=== PATIENT | female | born 1985 | race Caucasian/White ===

== ENCOUNTER 2016-12-23 00:38 | Emergency (ER) | payer MEDICAID ==
[2016-12-23] MEDS ORDERED: IPRATROPIUM/ALBUTEROL 0.5-2.5 MG/3 ML AMPUL NEB ONE (02:10)
--- NOTE | 2016-12-23 02:11 | ER Document Report ---
ED Medical Screen (RME) - General Chief Complaint: Chest Congestion Stated Complaint: TROUBLE BREATHING Time Seen by Provider: 12/23/16 02:09 Notes: 31-year-old female, chief complaint of 3 days of cough, congestion, chills, and some wheezing. She does not smoke, denies history of asthma, only medical history is Crohn's disease, she takes no medications and is in remission. She does report some sick contacts. TRAVEL OUTSIDE OF THE [place] IN LAST 30 DAYS: No - Related Data Allergies/Adverse Reactions: Influenza Virus Vaccines [Influenza Virus Vaccine] Allergy (Verified 12/23/16 01 :22) nonallergic ivp dye Allergy (Uncoded 12/23/16 01:22) Past Medical History Pulmonary Medical History: Denies: Hx Asthma Endocrine Medical History: Denies: Hx Diabetes Mellitus Type 1, Hx Diabetes Mellitus Type 2 Renal/ Medical History: Denies: Hx Peritoneal Dialysis GI Medical History: Reports: Hx Crohn's Disease Psychiatric Medical History: Reports: Hx Depression Past Surgical History: Reports: Hx Section - x2, Hx Oral Surgery - wisdom teeth extraction 2006, Hx Tonsillectomy - 2006 - Immunizations Immunizations up to date: Yes Hx Diphtheria, Pertussis, Tetanus Vaccination: Yes Physical Exam - Vital signs Vitals: Temp Pulse Resp BP Pulse Ox 98.6 F 101 H 20 107/80 100 12/23/16 01:21 12/23/16 01:21 12/23/16 01:21 12/23/16 01:21 12/23/16 01:21 - Respiratory Breath sounds: Nonproductive cough - Nonproductive congested cough, Wheezing - Scattered expiratory wheezes with some scattered rhonchi Course - Vital Signs Vital signs: Temp Pulse Resp BP Pulse Ox 98.6 F 101 H 20 107/80 100 12/23/16 01:21 12/23/16 01:21 12/23/16 01:21 12/23/16 01:21 12/23/16 01:21
--- NOTE | 2016-12-23 02:58 | RADIOLOGY REPORT (SQ) ---
EXAM DESCRIPTION: CHEST PA/LAT COMPLETED DATE/TIME: 12/23/2016 2:23 am REASON FOR STUDY: chest congestion COMPARISON: None. EXAM PARAMETERS: NUMBER OF VIEWS: two views TECHNIQUE: Digital Frontal and Lateral radiographic views of the chest acquired. RADIATION DOSE: NA LIMITATIONS: none FINDINGS: LUNGS AND PLEURA: No opacities, masses or pneumothorax. No pleural effusion. MEDIASTINUM AND HILAR STRUCTURES: No masses or contour abnormalities. HEART AND VASCULAR STRUCTURES: Heart normal size. No evidence for failure. BONES: No acute findings. HARDWARE: None in the chest. OTHER: No other significant finding. IMPRESSION: NO SIGNIFICANT RADIOGRAPHIC FINDING IN THE CHEST. TECHNICAL DOCUMENTATION: JOB ID: [id number] [employer]- All Rights Reserved
--- NOTE | 2016-12-23 05:00 | ER Document Report ---
ED Respiratory Problem - General Chief Complaint: Chest Congestion Stated Complaint: TROUBLE BREATHING Time Seen by Provider: 12/23/16 02:09 Notes: 31-year-old female, chief complaint of 3 days of cough, congestion, chills, and some wheezing. She does not smoke, denies history of asthma, only medical history is Crohn's disease, she takes no medications and is in remission. She does report some sick contacts. TRAVEL OUTSIDE OF THE [place] IN LAST 30 DAYS: No - Related Data Allergies/Adverse Reactions: Influenza Virus Vaccines [Influenza Virus Vaccine] Allergy (Verified 12/23/16 01 :22) nonallergic ivp dye Allergy (Uncoded 12/23/16 01:22) Past Medical History - General Information source: Patient - Social History Smoking Status: Never Smoker Frequency of alcohol use: None Drug Abuse: None Lives with: Family Family History: CAD, DM, Hypertension, Malignancy, Other - pcos Patient has suicidal ideation: No Patient has homicidal ideation: No Pulmonary Medical History: Denies: Hx Asthma Endocrine Medical History: Denies: Hx Diabetes Mellitus Type 1, Hx Diabetes Mellitus Type 2 Renal/ Medical History: Denies: Hx Peritoneal Dialysis GI Medical History: Reports: Hx Crohn's Disease Psychiatric Medical History: Reports: Hx Depression Past Surgical History: Reports: Hx Section - x2, Hx Oral Surgery - wisdom teeth extraction 2006, Hx Tonsillectomy - 2006 - Immunizations Immunizations up to date: Yes Hx Diphtheria, Pertussis, Tetanus Vaccination: Yes Review of Systems - Review of Systems Constitutional: See HPI EENT: See HPI Cardiovascular: No symptoms reported Respiratory: See HPI Gastrointestinal: No symptoms reported Genitourinary: No symptoms reported Female Genitourinary: No symptoms reported Musculoskeletal: No symptoms reported Skin: No symptoms reported Hematologic/Lymphatic: No symptoms reported Neurological/Psychological: No symptoms reported Physical Exam - Vital signs Vitals: Temp Pulse Resp BP Pulse Ox 98.6 F 101 H 20 107/80 100 12/23/16 01:21 12/23/16 01:21 12/23/16 01:21 12/23/16 01:21 12/23/16 01:21 Interpretation: Normal - General General appearance: Alert In distress: None - HEENT Head: Normocephalic, Atraumatic Eyes: Normal Conjunctiva: Normal Extraocular movements intact: Yes Eyelashes: Normal Pupils: PERRL Sinus: Other - Sounds congested but no tenderness over the sinuses Nasal: Clear rhinorrhea Mouth/Lips: Normal Mucous membranes: Normal - Respiratory Respiratory status: No respiratory distress Chest status: Nontender Breath sounds: Nonproductive cough, Rhonchi - A few scattered rhonchi, Wheezing - Faint expiratory wheezes Chest palpation: Normal - Cardiovascular Rhythm: Regular, Tachycardia - Borderline tachycardia Heart sounds: Normal auscultation, S1 appreciated, S2 appreciated Murmur: No - Abdominal Inspection: Normal Distension: No distension Bowel sounds: Normal Tenderness: Nontender. No: Tender, Guarding Organomegaly: No organomegaly - Back Back: Normal, Nontender - Extremities General upper extremity: Normal inspection, Nontender, Normal color, Normal ROM , Normal temperature General lower extremity: Normal inspection, Nontender, Normal color, Normal ROM , Normal temperature, Normal weight bearing. No: Hiren's sign - Neurological Neuro grossly intact: Yes Cognition: Normal Orientation: AAOx4 Kd Coma Scale Eye Opening: Spontaneous Kd Coma Scale Verbal: Oriented Kd Coma Scale Motor: Obeys Commands [place] Coma Scale Total: 15 Speech: Normal Motor strength normal: LUE, RUE, LLE, RLE Sensory: Normal - Psychological Associated symptoms: Normal affect, Normal mood - Skin Skin Temperature: Warm Skin Moisture: Dry Skin Color: Normal Course - Re-evaluation Re-evalutation: Examination of the lungs much improved after DuoNeb. Chest x-ray unremarkable, influenza negative. Patient does not smoke, does not have asthma. Because of bronchitis symptoms patient placed on prednisone, Tessalon Perles, discussed follow-up and return precautions, patient states understanding and agreement. - Vital Signs Vital signs: Temp Pulse Resp BP Pulse Ox 98.6 F 86 18 115/67 97 12/23/16 01:21 12/23/16 05:13 12/23/16 05:13 12/23/16 05:13 12/23/16 05:13 Discharge - Discharge Clinical Impression: Cough, Wheezing Upper respiratory infection Qualifiers: URI type: unspecified URI Qualified Code(s): J06.9 - Acute upper respiratory infection, unspecified Condition: Good Disposition: HOME, SELF-CARE Additional Instructions: Your chest x-ray does not show pneumonia. You did not have influenza. Your examination is consistent with an upper respiratory infection, consistent with bronchitis. Please take the prescribed medications, drink plenty of fluids, rest. Follow-up with primary care. Return to the emergency department for any concerning or worsening symptoms including difficulty breathing. Prescriptions: Benzonatate [Tessalon Perle 100 mg Capsule] 100 mg PO Q8HP PRN #20 cap PRN Reason: Prednisone [Deltasone 10 mg Tablet] 10 mg PO ASDIR PRN #21 tablet PRN Reason: Forms: Return to Work
[2016-12-23 05:18] VITALS: BP 115/67
== END 2016-12-23 05:10 | disposition home or self-care (01) ==
LOC: ER 00:38
DX: J06.9 Acute upper respiratory infection, unspecified (principal); R05 Cough; R68.83 Chills (without fever); R06.2 Wheezing; J34.89 Other specified disorders of nose and nasal sinuses; Z88.7 Allergy status to serum and vaccine; Z91.041 Radiographic dye allergy status
CPT/HCPCS: 94640; 99284; 87804; 71020; J7620

== ENCOUNTER 2017-05-25 00:25 | Emergency (ER) | payer MEDICAID ==
[2017-05-25] MEDS ORDERED: OXYCODONE-ACETAMINOPHEN 5-325 MG TABLET PO ONE (00:57)
[2017-05-25] MEDS ORDERED: PROMETHAZINE HCL 25 MG TABLET PO ONE (00:57)
--- NOTE | 2017-05-25 01:10 | ER Document Report ---
ED Fall - General Chief Complaint: Fall Stated Complaint: FALL Time Seen by Provider: 05/25/17 00:49 Notes: Patient is a 31-year-old female that comes emergency department for chief complaint of pain to the left lower ribs and left upper abdomen after falling off a horse at 8 PM tonight. She states that she fell forward off the horse and landed on her abdomen, denies hitting her head, reports pain with breathing out. She denies vomiting, passing out, focal numbness or weakness. She is not on any blood thinners. No open wounds. TRAVEL OUTSIDE OF THE [place] IN LAST 30 DAYS: No - Related data Allergies/Adverse Reactions: Influenza Virus Vaccines [Influenza Virus Vaccine] Allergy (Verified 12/23/16 01 :22) nonallergic ivp dye Allergy (Uncoded 12/23/16 01:22) Past Medical History - General Information source: Patient - Social History Smoking Status: Never Smoker Chew tobacco use (# tins/day): No Frequency of alcohol use: None Drug Abuse: None Lives with: Family Family History: CAD, DM, Hypertension, Malignancy, Other - pcos Patient has suicidal ideation: No Patient has homicidal ideation: No Pulmonary Medical History: Denies: Hx Asthma Endocrine Medical History: Denies: Hx Diabetes Mellitus Type 1, Hx Diabetes Mellitus Type 2 Renal/ Medical History: Denies: Hx Peritoneal Dialysis GI Medical History: Reports: Hx Crohn's Disease Psychiatric Medical History: Reports: Hx Depression Past Surgical History: Reports: Hx Section - x3, Hx Oral Surgery - wisdom teeth extraction 2006, Hx Tonsillectomy - 2006 - Immunizations Immunizations up to date: Yes Hx Diphtheria, Pertussis, Tetanus Vaccination: Yes Review of Systems - Review of Systems Constitutional: No symptoms reported EENT: No symptoms reported Cardiovascular: No symptoms reported Respiratory: See HPI Gastrointestinal: No symptoms reported Genitourinary: No symptoms reported Female Genitourinary: No symptoms reported Musculoskeletal: See HPI Skin: No symptoms reported Hematologic/Lymphatic: No symptoms reported Neurological/Psychological: No symptoms reported Physical Exam - Vital signs Vitals: Temp Pulse BP Pulse Ox 98.5 F 105 H 124/75 96 05/25/17 00:39 05/25/17 00:39 05/25/17 00:39 05/25/17 00:39 - General General appearance: Appears well In distress: None - HEENT Head: Normocephalic, Atraumatic Eyes: Normal Conjunctiva: Normal Extraocular movements intact: Yes Eyelashes: Normal Pupils: PERRL Mouth/Lips: Normal Mucous membranes: Normal Pharynx: Normal Neck: Normal - Respiratory Respiratory status: No respiratory distress Chest status: Tender - Marked tenderness in the left lower ribs anteriorly, otherwise chest is nontender and benign. - Cardiovascular Rhythm: Regular, Tachycardia - Borderline tachycardia Heart sounds: Normal auscultation, S1 appreciated, S2 appreciated - Abdominal Inspection: Other - There is a small horizontal bruise over the left upper abdomen just below the ribs which appears to be new Tenderness: Tender - Tender in the left upper quadrant with wincing, otherwise abdomen is soft and benign - Back Back: Normal, Nontender. No: Tender - Extremities General upper extremity: Normal inspection, Nontender, Normal strength, Normal temperature General lower extremity: Normal inspection, Nontender, Normal strength, Normal temperature. 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 Ybarra supervising. This was negative. Because of LUQ pain and bruising over the abdomen, will perform CT to rule out spleen injury. Patient allergic to IV dye. 05/25/17 Urinalysis unremarkable, hCG is negative. CAT scan with normal spleen and no concerning a normality. Does show hepatic steatosis, this was discussed with patient. Patient feels much better after medications. Tachycardia resolved. Discussed expectations, medications, follow-up, return precautions with patient. Patient states satisfaction and agreement. - Vital Signs Vital signs: Temp Pulse Resp BP Pulse Ox 97.2 F 83 16 108/59 L 97 05/25/17 03:10 05/25/17 03:10 05/25/17 03:10 05/25/17 03:10 05/25/17 03:10 - Laboratory Laboratory results interpreted by me: 05/25/17 01:15 Urine Blood SMALL H Discharge - Discharge Clinical Impression: Rib pain on left side, Left sided abdominal pain Fall from horse Qualifiers: Encounter type: initial encounter Qualified Code(s): V80.010A - Animal-rider injured by fall from or being thrown from horse in noncollision accident, initial encounter Condition: Stable Disposition: HOME, SELF-CARE Additional Instructions: Your examination shows bruising to your upper abdomen, likely bruised ribs as well, no fractures, internal bleeding, or concerning abnormalities are noted. He will likely be very sore, progressively so for the next couple of days. Take the pain medication given tonight especially at night to help her sleep, take the naproxen and Robaxin as anti-inflammatory and muscle relaxer throughout the day. For the first day recommend icing the rib area, afterwards I recommend heat. Rest, avoid lifting and twisting. Follow-up with primary care. Return to the emergency department for any concerning worsening symptoms including vomiting, difficulty breathing, passing out, severe pain, or any other concerning symptoms. Prescriptions: Methocarbamol [Robaxin 750 mg Tablet] 750 mg PO Q6 #20 tablet Naproxen 500 mg PO BID #20 tablet Referrals: MELI KAMARA MD [Primary Care Provider] - Follow up as needed
[2017-05-25 01:57] LABS: APPEARANCE,URINE CLEAR; BILIRUBIN,URINE NEGATIVE (NEGATIVE); COLOR,URINE YELLOW; GLUCOSE, URINE NEGATIVE (NEGATIVE); KETONES,URINE NEGATIVE (NEGATIVE); LEUKOCYTE ESTERASE,URINE NEGATIVE (NEGATIVE); NITRITE,URINE NEGATIVE (NEGATIVE); PROTEIN,URINE NEGATIVE (NEGATIVE); URINE SPECIFIC GRAVITY 1.021; UROBILINOGEN,URINE NEGATIVE mg/dL (<2.0)
--- NOTE | 2017-05-25 02:46 | RADIOLOGY REPORT (SQ) ---
EXAM DESCRIPTION: CT ABDOMEN AND PELVIS WITHOUT CONTRAST CLINICAL HISTORY: fall off horse, LUQ and left rib pain COMPARISON: None Available. TECHNIQUE: CT of the abdomen and pelvis without IV contrast. FINDINGS: Abdomen: The liver has normal size and decreased density. No calcified gallstones. The spleen, pancreas, and adrenal glands are unremarkable. The kidneys have normal size and contour without evidence of hydronephrosis. The exophytic right renal cyst. Incompletely characterized due to lack of IV contrast. No obstructing ureteral calculi. The aorta and IVC have normal caliber and position. No free intraperitoneal air. The stomach and duodenum have normal course. Pelvis: Uterus is not enlarged. Urinary bladder is unremarkable. No free pelvic fluid or lymphadenopathy. No dilated loops of large or small bowel. Normal appendix. The visualized lung bases are clear. No destructive bone lesions identified. DLP: 1125.02 mGy-cm IMPRESSION: 1. No acute abnormality in the abdomen identified by noncontrast CT criteria. 2. Hepatic steatosis.. This exam was performed according to our departmental dose-optimization program, which includes automated exposure control, adjustment of the mA and/or kV according to patient size and/or use of iterative reconstruction technique.
[2017-05-25] MEDS ORDERED: HYDROCODONE/ACETAMINOPHEN 5-325 MG (6 TAB/ER DISP) PO PRN (02:57)
[2017-05-25 03:11] VITALS: BP 108/59
== END 2017-05-25 03:18 | disposition home or self-care (01) ==
LOC: ER 00:25
DX: S30.1XXA Contusion of abdominal wall, initial encounter (principal); R07.81 Pleurodynia; R10.12 Left upper quadrant pain; V80.010A Animal-rider injured by fall from or being thrown from horse in noncollision accident, initial encounter; Z88.7 Allergy status to serum and vaccine; Z91.041 Radiographic dye allergy status; K76.0 Fatty (change of) liver, not elsewhere classified
CPT/HCPCS: 99284; 81025; 81001; 74176; J3490

== ENCOUNTER 2017-07-26 01:19 | Emergency (ER) | payer MEDICAID, OTHER ==
[2017-07-26] MEDS ORDERED: NORMAL SALINE 1000 ML 1,000 ML IV ONE (02:48)
[2017-07-26] MEDS ORDERED: KETOROLAC TROMETHAMINE INJ/PF 30 MG/1 ML SDV IV ONE (02:49)
--- NOTE | 2017-07-26 02:51 | ER Document Report ---
ED GI/ - General Chief Complaint: Flank Pain Stated Complaint: DIZZINESS Time Seen by Provider: 07/26/17 02:33 Notes: Patient is a 31-year-old female that comes emergency department for chief complaint of heavy vaginal bleeding and an episode of syncope. She states that she bleeds heavily every month, she has a history of anemia, she takes iron. She states that she felt herself passing out with blurry vision and tingling and she got down on the floor and then she woke up on the floor. She denies any impact. She denies any pain other than intermittent cramping with the bleeding. She states she has bled so much that she is wearing a diaper. She denies fever, nausea or vomiting, current pain. She states that all contraceptives give her a "terrible migraine" and she therefore does not take any for the bleeding. She has had ultrasounds in the past. TRAVEL OUTSIDE OF THE [place] IN LAST 30 DAYS: No - Related Data Allergies/Adverse Reactions: Influenza Virus Vaccines [Influenza Virus Vaccine] Allergy (Verified 07/26/17 01 :31) nonallergic ivp dye Allergy (Uncoded 12/23/16 01:22) Past Medical History - General Information source: Patient - Social History Smoking Status: Never Smoker Frequency of alcohol use: None Lives with: Family Family History: CAD, DM, Hypertension, Malignancy, Other - pcos Patient has suicidal ideation: No Patient has homicidal ideation: No Pulmonary Medical History: Denies: Hx Asthma Endocrine Medical History: Denies: Hx Diabetes Mellitus Type 1, Hx Diabetes Mellitus Type 2 Renal/ Medical History: Denies: Hx Peritoneal Dialysis GI Medical History: Reports: Hx Crohn's Disease Psychiatric Medical History: Reports: Hx Depression Past Surgical History: Reports: Hx Section - x3, Hx Oral Surgery - wisdom teeth extraction 2006, Hx Tonsillectomy - 2006 - Immunizations Immunizations up to date: Yes Hx Diphtheria, Pertussis, Tetanus Vaccination: Yes Review of Systems - Review of Systems Constitutional: See HPI EENT: No symptoms reported Cardiovascular: No symptoms reported Respiratory: No symptoms reported Gastrointestinal: See HPI Genitourinary: See HPI Female Genitourinary: See HPI Musculoskeletal: No symptoms reported Skin: No symptoms reported Hematologic/Lymphatic: No symptoms reported Neurological/Psychological: See HPI Physical Exam - Vital signs Vitals: Temp Pulse Resp BP Pulse Ox 98.7 F 90 18 119/70 97 07/26/17 01:35 07/26/17 01:35 07/26/17 01:35 07/26/17 01:35 07/26/17 01:35 Interpretation: Normal - General General appearance: Appears well In distress: None - HEENT Head: Normocephalic, Atraumatic Eyes: Normal Pupils: PERRL - Respiratory Respiratory status: No respiratory distress Chest status: Nontender Breath sounds: Normal Chest palpation: Normal - Cardiovascular Rhythm: Regular Heart sounds: Normal auscultation Murmur: No - Abdominal Inspection: Normal Distension: No distension Bowel sounds: Normal Tenderness: Nontender. No: Tender, Guarding Organomegaly: No organomegaly - Back Back: Normal, Nontender, Tender - Mild generalized nonspecific mid to lower back tenderness, no overt CVA tenderness. No midline tenderness, no saddle anesthesia, no signs of trauma. Normal upper and lower extremity range of motion , normal strength, normal distal neurovascular exam. - Extremities General upper extremity: Normal inspection, Nontender, Normal color, Normal ROM , Normal temperature General lower extremity: Normal inspection, Nontender, Normal color, Normal ROM , Normal temperature, Normal weight bearing. 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 Patient given IV fluids because of reported syncopal episode with heavy vaginal bleeding, however orthostatic vital signs are normal. She is alert and well-appearing. She excitedly told me about the events of her passing out, which sound slightly questionable. She denies any injury from the syncopal episode. Moderate vaginal bleeding. States she cannot take hormonal therapy because of severe migraines. After discussion decision was made to treat with Toradol and dose of TXA. Hemoglobin is 10, does not indicate transfusion. Patient was monitored and had no recurrent symptoms, ambulates without any difficulty. Discussed [employer] CHIL[employer] WORK[employer] follow- up, return precautions, patient states satisfaction and agreement with plan. - Vital Signs Vital signs: Temp Pulse Resp BP Pulse Ox 97.8 F 70 16 113/78 98 07/26/17 06:02 07/26/17 06:02 07/26/17 06:02 07/26/17 06:02 07/26/17 06:02 - Laboratory Result Diagrams: 07/26/17 03:08 07/26/17 03:08 Laboratory results interpreted by me: 07/26/17 07/26/17 07/26/17 03:08 03:08 04:15 WBC 12.7 H Hgb 10.0 L Hct 31.7 L MCV 69 L MCH 21.7 L MCHC 31.4 L RDW 20.1 H Plt Count 472 H Total Bilirubin < 0.1 L Total Protein 6.2 L Albumin 3.3 L Urine Blood LARGE H Ur Leukocyte Esterase SMALL H Discharge - Discharge Clinical Impression: Vaginal bleeding Anemia Qualifiers: Anemia type: unspecified type Qualified Code(s): D64.9 - Anemia, unspecified Episode of syncope Qualifiers: Syncope type: unspecified Qualified Code(s): R55 - Syncope and collapse Condition: Stable Disposition: HOME, SELF-CARE Additional Instructions: Your hemoglobin is 10. You have been treated for bleeding, you can take the Toradol for cramping/bleeding, drink plenty of fluids and rest. I recommend close [employer] WORK[employer] follow-up. See additional instructions below. Return for any concerning or worsening symptoms. Syncopal Episode Syncope (fainting or near-fainting) can occur from many different health problems. Or it can be a simple fainting spell requiring no treatment. It is safe for you to go home, but further evaluation will likely be necessary. Your work-up may include tests for internal bleeding, heart disease, medication problems, or near-strokes. Tests are not always required, however, depending on the nature of your problem. The warning signs of an impending faint include: dizziness, lightheadedness , nausea, hot flashes, tingling, and weakness. If this happens, lay down and put your feet up, then wait until all of these symptoms have passed before standing up again. If these episodes become recurrent, or if you develop chest pain, heart palpitations, mental confusion, blurred vision, or headache, then you should call the physician, or go to the emergency room. Prescriptions: Ketorolac Tromethamine [Toradol 10 mg Tablet] 10 mg PO Q8HP PRN #30 tablet PRN Reason: Referrals: [facility] [Provider Group] - Follow up in 3-5 days
[2017-07-26 03:28] LABS: ABSOLUTE BASOPHILS # (AUTO) 0.1 10^3/uL (0.0-0.2); ABSOLUTE EOSINOPHILS # (AUTO) 0.4 10^3/uL (0.0-0.6); ABSOLUTE LYMPHOCYTES (AUTO) 4.1 10^3/uL (0.5-4.7); ABSOLUTE NEUT (AUTO) 7.2 10^3/uL (1.7-8.2); BASOPHILS % (AUTO) 0.5 % (0-2); EOSINOPHILS % (AUTO) 3.3 % (0-6); HEMATOCRIT 31.7 % (36.0-47.0); LYMPHOCYTES % (AUTO) 32.1 % (13-45); MEAN CORPUSCULAR HEMOGLOBIN 21.7 pg (27.0-33.4); MEAN CORPUSCULAR HGB CONC 31.4 g/dL (32.0-36.0); MEAN CORPUSCULAR VOLUME 69 fl (80-97); MONOCYTES % (AUTO) 7.9 % (3-13); PLATELET COUNT 472 10^3/uL (150-450); RED BLOOD COUNT 4.59 10^6/uL (3.72-5.28); RED CELL DISTRIBUTION WIDTH 20.1 % (11.5-14.0); SEGMENTED NEUTROPHILS % (AUTO) 56.2 % (42-78); TOTAL CELLS COUNTED % (AUTO) 100 %; WHITE BLOOD COUNT 12.7 10^3/uL (4.0-10.5)
[2017-07-26 03:36] LABS: ALANINE AMINOTRANSFERASE 25 U/L (9-52); ALBUMIN 3.3 g/dL (3.5-5.0); ALKALINE PHOSPHATASE 78 U/L (38-126); ANION GAP 12 (5-19); ASPARTATE AMINO TRANSFERASE 15 U/L (14-36); BLOOD UREA NITROGEN 14 mg/dL (7-20); CALCIUM 8.8 mg/dL (8.4-10.2); CARBON DIOXIDE 27 mmol/L (22-30); CHLORIDE 104 mmol/L (98-107); GLUCOSE 99 mg/dL (75-110); POTASSIUM 4.1 mmol/L (3.6-5.0); SODIUM 142.6 mmol/L (137-145); TOTAL PROTEIN 6.2 g/dL (6.3-8.2)
[2017-07-26 03:37] LABS: BILIRUBIN,TOTAL < 0.1 mg/dL (0.2-1.3)
[2017-07-26 05:06] LABS: APPEARANCE,URINE SLIGHTLY-CLOUDY; BILIRUBIN,URINE NEGATIVE (NEGATIVE); COLOR,URINE YELLOW; GLUCOSE, URINE NEGATIVE (NEGATIVE); KETONES,URINE NEGATIVE (NEGATIVE); LEUKOCYTE ESTERASE,URINE SMALL (NEGATIVE); NITRITE,URINE NEGATIVE (NEGATIVE); PROTEIN,URINE NEGATIVE (NEGATIVE); URINE SPECIFIC GRAVITY 1.014; UROBILINOGEN,URINE NEGATIVE mg/dL (<2.0)
[2017-07-26] MEDS ORDERED: TRANEXAMIC ACID INJ/PF 1,000 MG/10 ML SDV IV ONE (05:33)
[2017-07-26 06:02] VITALS: BP 113/78
== END 2017-07-26 06:02 | disposition home or self-care (01) ==
LOC: ER 01:19
DX: N93.8 Other specified abnormal uterine and vaginal bleeding (principal); R55 Syncope and collapse; D64.9 Anemia, unspecified; R42 Dizziness and giddiness; R10.9 Unspecified abdominal pain
CPT/HCPCS: 99284; 96361; 96374; 96375; 86900; 86901; 36415; 87086; 86850; 84703; 85025; 80053; 81001; J1885; J7030; J3490

== ENCOUNTER 2017-10-21 16:38 | Emergency (ER) | payer MEDICAID ==
--- NOTE | 2017-10-21 17:08 | ER Document Report ---
ED Medical Screen (RME) - General Chief Complaint: Sore Throat Stated Complaint: FEVER/COUGH Time Seen by Provider: 10/21/17 16:53 Mode of Arrival: Ambulatory Information source: Patient Notes: 32-year-old female presents to ED for complaint of pain everywhere. She states she has pain in her head or neck sore throat difficulty swallowing and very stiff neck for the last 4 days. She states every time she moves her head or neck it hurts all the way down her back. When I asked her to move her neck she screamed out in pain she states that her neck hurts with pain down her back. Temperature 100.0 pulse 117 blood pressure 103/71 and respirations 20 with O2 sat of 99. She is alert and oriented respirations regular and unlabored. Throat culture was obtained and patient was upgraded to be seen by a physician. Lungs clear to auscultation. I have greeted and performed a rapid initial assessment of this patient. A comprehensive ED assessment and evaluation of the patient, analysis of test results and completion of medical decision making process will be conducted by an additional ED providers. TRAVEL OUTSIDE OF THE [place] IN LAST 30 DAYS: No - Related Data Allergies/Adverse Reactions: Influenza Virus Vaccines [Influenza Virus Vaccine] Allergy (Verified 10/21/17 16 :38) nonallergic ivp dye Allergy (Uncoded 10/21/17 16:38) Past Medical History Pulmonary Medical History: Denies: Hx Asthma Endocrine Medical History: Denies: Hx Diabetes Mellitus Type 1, Hx Diabetes Mellitus Type 2 Renal/ Medical History: Denies: Hx Peritoneal Dialysis GI Medical History: Reports: Hx Crohn's Disease Psychiatric Medical History: Reports: Hx Depression Past Surgical History: Reports: Hx Section - x3, Hx Oral Surgery - wisdom teeth extraction 2006, Hx Tonsillectomy - 2006 - Immunizations Immunizations up to date: Yes Hx Diphtheria, Pertussis, Tetanus Vaccination: Yes Physical Exam - Vital signs Vitals: Temp Pulse Resp BP Pulse Ox 100.0 F 117 H 20 103/71 99 10/21/17 16:45 10/21/17 16:45 10/21/17 16:45 10/21/17 16:45 10/21/17 16:45 Course - Vital Signs Vital signs: Temp Pulse Resp BP Pulse Ox 100.0 F 117 H 20 103/71 99 10/21/17 16:45 10/21/17 16:45 10/21/17 16:45 10/21/17 16:45 10/21/17 16:45 Doctor's Discharge - Discharge Referrals: PANCHITO HARRIS DO [Primary Care Provider] - Follow up as needed
[2017-10-21] MEDS ORDERED: NORMAL SALINE 1000 ML 1,000 ML IV ONE (17:47)
--- NOTE | 2017-10-21 17:47 | ER Document Report ---
ED General - General Chief Complaint: Sore Throat Stated Complaint: FEVER/COUGH Time Seen by Provider: 10/21/17 16:53 Mode of Arrival: Ambulatory Notes: Patient presents with 4 days of sore throat progressing to bilateral submandibular tenderness. Patient also states that she has been feeling hot. She states that over the last several days that she is beginning to have neck stiffness that starts in her submandibular area and goes to the back of her neck. Patient states she has history of Crohn's disease but does not take any medications on a daily basis. She has been having a nonproductive cough. Denies any chest or abdominal pain patient is noted to be on her cell phone in no distress when walking into the room. TRAVEL OUTSIDE OF THE [place] IN LAST 30 DAYS: No - Related Data Allergies/Adverse Reactions: Influenza Virus Vaccines [Influenza Virus Vaccine] Allergy (Verified 10/21/17 16 :38) nonallergic ivp dye Allergy (Uncoded 10/21/17 16:38) Past Medical History - General Information source: Patient - Social History Smoking Status: Unknown if Ever Smoked Family History: CAD, DM, Hypertension, Malignancy, Other - pcos Patient has suicidal ideation: No Patient has homicidal ideation: No Pulmonary Medical History: Denies: Hx Asthma Endocrine Medical History: Denies: Hx Diabetes Mellitus Type 1, Hx Diabetes Mellitus Type 2 Renal/ Medical History: Denies: Hx Peritoneal Dialysis GI Medical History: Reports: Hx Crohn's Disease Psychiatric Medical History: Reports: Hx Depression Past Surgical History: Reports: Hx Section - x3, Hx Oral Surgery - wisdom teeth extraction 2006, Hx Tonsillectomy - 2006 - Immunizations Immunizations up to date: Yes Hx Diphtheria, Pertussis, Tetanus Vaccination: Yes Review of Systems - Review of Systems Constitutional: No symptoms reported EENT: See HPI Cardiovascular: No symptoms reported Respiratory: No symptoms reported Gastrointestinal: No symptoms reported Genitourinary: No symptoms reported Female Genitourinary: No symptoms reported Musculoskeletal: No symptoms reported Skin: No symptoms reported Hematologic/Lymphatic: No symptoms reported Neurological/Psychological: No symptoms reported Physical Exam - Vital signs Vitals: Temp Pulse Resp BP Pulse Ox 100.0 F 117 H 20 103/71 99 10/21/17 16:45 10/21/17 16:45 10/21/17 16:45 10/21/17 16:45 10/21/17 16:45 - General General appearance: Appears well, Alert - HEENT Head: Normocephalic, Atraumatic Eyes: Normal Extraocular movements intact: Yes Pupils: PERRL - Mild erythema in posterior oropharynx and no petechiae on soft or hard palate. Tenderness to palpation bilateral submandibular region but no appreciable cervical or submandibular lymphadenopathy. No tenderness with midline palpation of the neck. Mild tenderness to palpation of parasternal neck muscles most proximal to submandibular region bilaterally - Respiratory Respiratory status: No respiratory distress Chest status: Nontender Breath sounds: Normal. No: Rales, Stridor, Wheezing Chest palpation: Normal - Cardiovascular Rhythm: Tachycardia Heart sounds: Normal auscultation Murmur: No - Abdominal Inspection: Normal Distension: No distension Bowel sounds: Normal Tenderness: Nontender - Neurological Neuro grossly intact: Yes Cognition: Normal Orientation: AAOx4 - Skin Skin Temperature: Warm - No rashes noted on torso or extremities Course - Re-evaluation Re-evalutation: 10/21/17 17:44 Patient well-appearing no acute distress when entering room. Patient does have tenderness to bilateral submandibular region and wraps around to her parasternal cervical musculature. She does not have any neurologic deficits or AMS. I do not feel any lumbar puncture is warranted as her symptoms have been going on for several days, mild tachycardia but otherwise no other concerning findings. If she truly had concerning meningitis with 4 day duration she should appear more toxic and altered which she is not. No S/S of Andrew's angina. She does have a sore throat and erythematous oropharynx. Her symptoms are consistent pharyngitis although her strep test is negative due to duration of symptoms of approximately [address] patient on antibiotics and provide steroid. Return precautions will provided to the patient. 10/21/17 17:49 10/21/17 19:21 Patient's headache improved with fluids and migraine cocktail. Patient's vitals within normal limits. Patient's symptoms originating her submandibular her neck which is a believe is causing her headache pain and discomfort. Patient is not altered in any way and her symptoms improved with therapy in the emergency department. Patient had driven to the emergency department as well. Will be discharged with 7 days of clindamycin and will provide ceftriaxone prior to discharge since IV is already placed. Also discussed case with mother at bedside who is a nurse practitioner. 08/08/18 19:23 10/21/17 19:24 10/21/17 19:31 Patient sitting upright in bed turning neck in no distress neurologically intact with no alteration in mental status. States that the swelling and discomfort in her submandibular region has subsided with medication administration. - Vital Signs Vital signs: Temp Pulse Resp BP Pulse Ox 100.2 F 90 16 110/64 96 10/21/17 18:44 10/21/17 18:44 10/21/17 18:44 10/21/17 18:49 10/21/17 18:44 Discharge - Discharge Clinical Impression: Acute pharyngitis Qualifiers: Pharyngitis/tonsillitis etiology: unspecified etiology Qualified Code(s): J02.9 - Acute pharyngitis, unspecified Condition: Good Disposition: HOME, SELF-CARE Instructions: Sore Throat ([facility]) Prescriptions: Clindamycin HCl 300 mg PO QID #28 capsule Referrals: PANCHITO HARRIS DO [Primary Care Provider] - Follow up as needed
[2017-10-21] MEDS ORDERED: PROCHLORPERAZINE EDISYLATE INJ 10 MG/2 ML VIAL IV ONE (17:48)
[2017-10-21] MEDS ORDERED: DEXAMETHASONE SOD PHOS INJ 10 MG/1 ML VIAL IV ONE (17:48)
[2017-10-21] MEDS ORDERED: DIPHENHYDRAMINE HCL 50 MG/ML VIAL IV ONE (17:49)
[2017-10-21] MEDS ORDERED: KETOROLAC TROMETHAMINE INJ/PF 30 MG/1 ML SDV IV ONE (17:49)
[2017-10-21 18:50] VITALS: BP 110/64
[2017-10-21] MEDS ORDERED: CEFTRIAXONE 1 GM/D5W RTU 50 ML IV ONE (19:22)
[2017-10-21] MEDS ORDERED: CEFTRIAXONE INJ 1000 MG VIAL IV ONE (20:00)
== END 2017-10-21 20:00 | disposition home or self-care (01) ==
LOC: ER 16:38
DX: J02.9 Acute pharyngitis, unspecified (principal); M43.6 Torticollis; R05 Cough; R00.0 Tachycardia, unspecified; R51 Headache; Z88.7 Allergy status to serum and vaccine; Z91.041 Radiographic dye allergy status
CPT/HCPCS: 99283; 96375; 96365; 87070; 87880; 87077; J1200; J1885; J0780; J0696; J7030; J1100

== ENCOUNTER 2018-03-16 17:54 | Emergency (ER) | payer MEDICAID ==
--- NOTE | 2018-03-16 20:03 | ER Document Report ---
ED Medical Screen (RME) - General Chief Complaint: Vaginal Bleeding Stated Complaint: VAGINAL BLEEDING Time Seen by Provider: 03/16/18 19:55 Notes: Patient is a G 10 P3 32-year-old female who presents emergency department with a chief complaint of vaginal bleeding. About 5 days ago she had some dark brown discharge from her vagina and this morning she woke up and it was a bright red. She does complain of some cramping but states it is not that bad. She has had multiple miscarriages in the past. TRAVEL OUTSIDE OF THE [place] IN LAST 30 DAYS: No - Related Data Allergies/Adverse Reactions: Influenza Virus Vaccines [Influenza Virus Vaccine] Allergy (Verified 10/21/17 16:38) nonallergic ivp dye Allergy (Uncoded 10/21/17 16:38) Past Medical History Pulmonary Medical History: Denies: Hx Asthma Endocrine Medical History: Denies: Hx Diabetes Mellitus Type 1, Hx Diabetes Mellitus Type 2 Renal/ Medical History: Denies: Hx Peritoneal Dialysis GI Medical History: Reports: Hx Crohn's Disease Psychiatric Medical History: Reports: Hx Depression Past Surgical History: Reports: Hx Section - x3, Hx Oral Surgery - wisdom teeth extraction 2006, Hx Tonsillectomy - 2006 - Immunizations Immunizations up to date: Yes Hx Diphtheria, Pertussis, Tetanus Vaccination: Yes Physical Exam - Vital signs Vitals: Temp Pulse Resp BP Pulse Ox 99.1 F 95 18 117/63 98 03/16/18 18:19 03/16/18 18:19 03/16/18 18:19 03/16/18 18:19 03/16/18 18:19 - Abdominal Inspection: Normal Tenderness: Tender - Lower abdomen mildly tender. Course - Vital Signs Vital signs: Temp Pulse Resp BP Pulse Ox 99.1 F 95 18 117/63 98 03/16/18 18:19 03/16/18 18:19 03/16/18 18:19 03/16/18 18:19 03/16/18 18:19 Doctor's Discharge - Discharge Referrals: PANCHITO HARRIS DO [Primary Care Provider] - Follow up as needed
[2018-03-16 21:38] LABS: ABSOLUTE BASOPHILS # (AUTO) 0.2 10^3/uL (0.0-0.2); ABSOLUTE EOSINOPHILS # (AUTO) 0.5 10^3/uL (0.0-0.6); ABSOLUTE LYMPHOCYTES (AUTO) 4.2 10^3/uL (0.5-4.7); ABSOLUTE MONOCYTES (AUTO) 1.1 10^3/uL (0.1-1.4); EOSINOPHILS % (AUTO) 2.7 % (0-6); HEMATOCRIT 34.7 % (36.0-47.0); HEMOGLOBIN 11.2 g/dL (12.0-15.5); LYMPHOCYTES % (AUTO) 23.5 % (13-45); MEAN CORPUSCULAR HEMOGLOBIN 24.1 pg (27.0-33.4); MEAN CORPUSCULAR HGB CONC 32.4 g/dL (32.0-36.0); MEAN CORPUSCULAR VOLUME 75 fl (80-97); MONOCYTES % (AUTO) 6.2 % (3-13); PLATELET COUNT 430 10^3/uL (150-450); RED BLOOD COUNT 4.65 10^6/uL (3.72-5.28); RED CELL DISTRIBUTION WIDTH 17.1 % (11.5-14.0); SEGMENTED NEUTROPHILS % (AUTO) 66.6 % (42-78); TOTAL CELLS COUNTED % (AUTO) 100 %
--- NOTE | 2018-03-16 21:50 | RADIOLOGY REPORT (SQ) ---
EXAM DESCRIPTION: US TRANSVAGINAL COMPLETED DATE/TME: 03/16/2018 20:01 CLINICAL HISTORY: 32 years, Female, vaginal bleeding COMPARISON: EXAM DESCRIPTION: CLINICAL HISTORY: vaginal bleeding COMPARISON: None. FINDINGS: [ ] [transvaginal ] images of the pelvis were submitted. The gestational sac is abnormally located in the lower uterine segment adjacent to the cervix. The uterus measures 11.5 x 7.1 x 5.9 cm. Ultrasound [facility] of November 10, 2018. Estimated gestational age is five weeks six days. Gestational sac and cardiac motion and yolk sac are seen. Cervix length is 37 mm. There there are several nonspecific regions of cystic heterogeneous echogenicity in the cervix. These do not contain significant internal flow. Neither ovary is seen. heart rate is low at 97 bpm. Maternal habitus limits detail. IMPRESSION: bradycardia. Gestational sac is abnormally located in the lower uterine segment adjacent to the cervix, which is atypical and I recommend ACTIVITIES ASSISTANT consultation as well as imaging follow-up.
--- NOTE | 2018-03-16 22:58 | ER Document Report ---
ED General - General Chief Complaint: Vaginal Bleeding Stated Complaint: VAGINAL BLEEDING Time Seen by Provider: 03/16/18 19:55 Notes: Patient is a pleasant 32-year-old female who presents with vaginal bleeding during . She also has pelvic cramping. She is G 10 P4. She has 3 live children with one child dying shortly after being born at 23 weeks. She is had 5 miscarriages. She says approximately 5 days ago started noticing some dark blood vaginally. Today became bright red with a few clots and increased cramping therefore she came to the ER she is concerned she was probably having a miscarriage. She denies any fevers. No infections. No dysuria. No passing of anything that appeared to be tissue. TRAVEL OUTSIDE OF THE [place] IN LAST 30 DAYS: No - Related Data Allergies/Adverse Reactions: Influenza Virus Vaccines [Influenza Virus Vaccine] Allergy (Verified 10/21/17 16:38) nonallergic ivp dye Allergy (Uncoded 10/21/17 16:38) Past Medical History - Social History Smoking Status: Never Smoker Chew tobacco use (# tins/day): No Frequency of alcohol use: None Drug Abuse: None Family History: CAD, DM, Hypertension, Malignancy, Other - pcos Patient has suicidal ideation: No Patient has homicidal ideation: No Pulmonary Medical History: Denies: Hx Asthma Endocrine Medical History: Denies: Hx Diabetes Mellitus Type 1, Hx Diabetes Mellitus Type 2 Renal/ Medical History: Denies: Hx Peritoneal Dialysis GI Medical History: Reports: Hx Crohn's Disease Psychiatric Medical History: Reports: Hx Depression Past Surgical History: Reports: Hx Section - x3, Hx Oral Surgery - wisdom teeth extraction 2006, Hx Tonsillectomy - 2006 - Immunizations Immunizations up to date: Yes Hx Diphtheria, Pertussis, Tetanus Vaccination: Yes Review of Systems - Review of Systems Notes: My Normal Review Basic REVIEW OF SYSTEMS: CONSTITUTIONAL : Denies fever, chills, or sweats. Denies recent illness. GASTROINTESTINAL: Lower central abdominal pain. Denies nausea, vomiting, or diarrhea. GENITOURINARY: Denies difficulty urinating, painful urination, burning, frequency, or blood in urine. FEMALE GENITOURINARY: Vaginal bleeding in . MUSCULOSKELETAL: Denies neck or back pain or joint pain or swelling. SKIN: Denies rash or skin lesions. NEUROLOGICAL: Denies altered mental status or loss of consciousness. ALL OTHER SYSTEMS REVIEWED AND NEGATIVE. Physical Exam - Vital signs Vitals: Temp Pulse Resp BP Pulse Ox 99.1 F 95 18 117/63 98 03/16/18 18:19 03/16/18 18:19 03/16/18 18:19 03/16/18 18:19 03/16/18 18:19 - Notes Notes: General Appearance: Well nourished, alert, cooperative, no acute distress, no obvious discomfort. Well-appearing. Vitals: reviewed, See vital signs table. Eyes: PERRL, EOMI, Conjuctiva clear Abdomen: Normal BS, soft, No rigidity, No producible abdominal tenderness to palpation, No guarding, no rebound, no abdominal masses, no organomegaly Extremities: good pulses in all extremities Skin: warm, dry, appropriate color, no rash Neuro: speech clear, oriented x 3, normal affect, responds appropriately to questions. Course - Re-evaluation Re-evalutation: 03/16/18 23:37 Patient's ultrasound is concerning that she could have a miscarriage being that the fetus is at the very lower area of the uterus near the cervical opening in conjunction with her symptoms heavy bleeding and cramping in her history of several miscarriages in the past. I did talk to the patient at length about this. Informed consent 100% that she could have a miscarriage however I am concerned that it is more likely. She is understanding of this. I informed her that she should not have any sexual activity or do any heavy lifting over the next couple days and that should follow-up with us or an OB doctor for re evaluation and repeat of her hCG level. Patient encouraged to return to ER if she has heavy bleeding, worsening pain, or if she feels unwell. Patient agrees with plan and will be discharged home. Dictation of this chart was performed using voice recognition software; therefore, there may be some unintended grammatical errors. - Vital Signs Vital signs: Temp Pulse Resp BP Pulse Ox 98.7 F 85 18 107/62 100 03/16/18 22:12 03/16/18 22:12 03/16/18 18:19 03/16/18 22:12 03/16/18 22:12 - Laboratory Result Diagrams: 03/16/18 21:22 Laboratory results interpreted by me: 03/16/18 03/16/18 21:22 21:22 WBC 18.0 H Hgb 11.2 L Hct 34.7 L MCV 75 L MCH 24.1 L RDW 17.1 H Absolute Neutrophils 12.0 H Beta HCG, Quant 2335.60 H Discharge - Discharge Clinical Impression: Vaginal bleeding during Condition: Good Disposition: HOME, SELF-CARE Additional Instructions: Please follow up with the ER or your OB doctor in 2-3 days for repeat of your HCG level. I have included the number to the public relations director Ob physician (Dr. Ovalles). Please return to the ER if you have heavy bleeding causing you to feel unwell, feel light headed, or have any further concerns. Referrals: ZANE OVALLES MD [ACTIVE STAFF] - 03/18/18
[2018-03-16 23:52] VITALS: BP 111/66
== END 2018-03-16 23:52 | disposition home or self-care (01) ==
LOC: ER 17:54
DX: O46.90 Antepartum hemorrhage, unspecified, unspecified trimester (principal); O26.899 Other specified pregnancy related conditions, unspecified trimester; R10.2 Pelvic and perineal pain; Z3A.00 Weeks of gestation of pregnancy not specified; Z87.59 Personal history of other complications of pregnancy, childbirth and the puerperium; Z88.7 Allergy status to serum and vaccine; Z91.041 Radiographic dye allergy status
CPT/HCPCS: 36415; 76817; 84702; 85025; 99284

== ENCOUNTER 2018-03-18 17:01 | Emergency (ER) | payer MEDICAID ==
--- NOTE | 2018-03-18 20:00 | ER Document Report ---
ED General - General Chief Complaint: OB Problem (<20wks) Stated Complaint: VAGINAL SPOTTING/CRAMPING Time Seen by Provider: 03/18/18 19:58 Notes: Patient is a 32-year-old female who presents to the emergency department with a chief complaint of abdominal cramping. She is G 10 P4. She is 5 weeks . She was seen 2 days ago and regards to her . She was told that she needs to have her labs rechecked to make sure that her hCG levels are rising. She states she has some bleeding, but is not passing any tissue. TRAVEL OUTSIDE OF THE [place] IN LAST 30 DAYS: No - Related Data Allergies/Adverse Reactions: Influenza Virus Vaccines [Influenza Virus Vaccine] Allergy (Verified 03/18/18 17:03) nonallergic ivp dye Allergy (Uncoded 03/18/18 17:03) Past Medical History - General Last Menstrual Period: unk - Social History Smoking Status: Former Smoker Chew tobacco use (# tins/day): No Frequency of alcohol use: None Drug Abuse: None Family History: CAD, DM, Hypertension, Malignancy, Other - pcos Patient has suicidal ideation: No Patient has homicidal ideation: No Pulmonary Medical History: Denies: Hx Asthma Endocrine Medical History: Denies: Hx Diabetes Mellitus Type 1, Hx Diabetes Mellitus Type 2 Renal/ Medical History: Denies: Hx Peritoneal Dialysis GI Medical History: Reports: Hx Crohn's Disease Psychiatric Medical History: Reports: Hx Depression Past Surgical History: Reports: Hx Section - x3, Hx Oral Surgery - wisdom teeth extraction 2006, Hx Tonsillectomy - 2006 - Immunizations Immunizations up to date: Yes Hx Diphtheria, Pertussis, Tetanus Vaccination: Yes Review of Systems - Review of Systems Notes: REVIEW OF SYSTEMS: CONSTITUTIONAL : Denies recent illness. Denies recent unintentional weight loss. Denies fever, chills, or sweats. EENT: Denies eye, ear, throat, or mouth pain, discharge, or symptoms. Denies nasal or sinus congestion. CARDIOVASCULAR: Denies chest pain. RESPIRATORY: Denies shortness of breath, cough, congestion, difficulty breathing, or wheezing. GASTROINTESTINAL: Denies nausea, vomiting, and diarrhea. Denies abdominal pain. Denies constipation. Last BM: GENITOURINARY: Denies difficulty urinating, burning, blood in urine, urgency or frequency. FEMALE GENITOURINARY: See HPI MUSCULOSKELETAL: Denies neck and back pain. Denies joint pain or swelling. SKIN: Denies rash, itchiness, or lesions HEMATOLOGIC : Denies easy bruising or bleeding. LYMPHATIC: Denies swollen, painful, enlarged glands. NEUROLOGICAL: Denies no numbness or tingling denies weakness. Denies headache. Denies altered mental status. Denies alteration in speech. PSYCHIATRIC: Denies stress, anxiety, alteration in sleep patterns, or depression. All other systems reviewed and negative. Physical Exam - Vital signs Vitals: Temp Pulse Resp BP Pulse Ox 99.2 F 115 H 16 109/84 96 03/18/18 17:20 03/18/18 17:20 03/18/18 17:20 03/18/18 17:20 03/18/18 17:20 - Notes Notes: PHYSICAL EXAMINATION: GENERAL: Appears well, healthy, well-nourished, no acute distress. HEAD: Normocephalic, atraumatic. EYES: PERRL, conjunctiva normal, all extraocular movements intact, sclera nonicteric ENT: Moist mucous membranes. NECK: Supple, no noticeable swelling, redness, rash. Normal range of motion. LUNGS: Equal breath sounds bilaterally and clear to auscultation. No wheezes rales or rhonchi. CARDIOVASCULAR: S1-S2, regular rate, regular rhythm. Radial pulses 2+, normal. ABDOMEN: Normoactive bowel sounds. Soft, mildly tender lower abdomen, no guarding, no rebound tenderness, and no masses palpated. EXTREMITIES: Normal strength and range of motion, no pitting or edema. No cyanosis. NEUROLOGICAL: Moves all extremities upon command. Strength 5/5 in all extremities. PSYCH: Normal mood, normal affect. SKIN: Warm, dry. No rash, lesions, ulcerations noted. Normal skin turgor. Course - Re-evaluation Re-evalutation: 03/18/18 20:57 Patient's hCG levels have not risen from her previous visit. She will be sent for a transvaginal ultrasound to visualize if she spontaneously aborted or if she still has an intrauterine . 03/19/18 22:00 Patient still has an intrauterine . She is at 6 weeks 2 days gestation according to her ultrasound. I have discussed this with the patient. 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 I have also given her instructions for pelvic rest. Verbal discharge instructions were given to the patient. They verbalized understanding. They are stable for discharge. - Vital Signs Vital signs: Temp Pulse Resp BP Pulse Ox 98.6 F 91 16 111/69 96 03/18/18 22:46 03/18/18 22:46 03/18/18 22:46 03/18/18 22:46 03/18/18 22:46 - Laboratory Laboratory results interpreted by me: 03/18/18 03/18/18 19:45 20:05 Beta HCG, Quant 2229.60 H Urine Blood LARGE H Discharge - Discharge Clinical Impression: Intrauterine Condition: Stable Disposition: HOME, SELF-CARE Additional Instructions: You were seen here in the emergency department for a recheck on your labs. Your hCG level decreased a little bit, but your transvaginal ultrasound shows that you still have a intrauterine . Please follow-up with an [facility] of your choice in regards to this visit. You may go back to [facility] for high risk management. Please continue pelvic rest. Do not have sex until you are seen by an [facility]. Refrain from placing anything in your vagina. If you develop a have excessive vaginal bleeding or have any symptoms that are worrisome to you please return to the emergency department. Referrals: PANCHITO HARRIS DO [Primary Care Provider] - Follow up as needed
[2018-03-18 20:23] LABS: APPEARANCE,URINE SLIGHTLY-CLOUDY; BILIRUBIN,URINE NEGATIVE (NEGATIVE); COLOR,URINE YELLOW; GLUCOSE, URINE NEGATIVE (NEGATIVE); KETONES,URINE NEGATIVE (NEGATIVE); LEUKOCYTE ESTERASE,URINE NEGATIVE (NEGATIVE); NITRITE,URINE NEGATIVE (NEGATIVE); PROTEIN,URINE NEGATIVE (NEGATIVE); URINE SPECIFIC GRAVITY 1.016; UROBILINOGEN,URINE NEGATIVE mg/dL (<2.0)
--- NOTE | 2018-03-18 22:07 | RADIOLOGY REPORT (SQ) ---
US PELVIS HISTORY: Early . Pelvic pain. COMPARISON: 03/16/2018 TECHNIQUE: Grayscale, color Doppler, and spectral Doppler ultrasound images of the pelvis were obtained. FINDINGS: There is an intrauterine gestational sac in the lower uterine segment abutting the internal cervical os with a yolk sac and pole visualized. The contour of the gestational sac is within normal limits. The crown-rump length measures 0.54 cm, which corresponds to 6 weeks 2 days of . The heart rate is 98 bpm. There are unchanged cystic areas in the cervix likely representing nabothian cysts. The ovaries were poorly visualized on this study. IMPRESSION: Single IUP embedded in the lower uterine segment abutting the internal cervical os. Estimated gestational age is 6 weeks 2 days. heart rate is 98 bpm.
[2018-03-18 22:47] VITALS: BP 111/69
== END 2018-03-18 22:48 | disposition home or self-care (01) ==
LOC: ER 17:01
DX: O26.91 Pregnancy related conditions, unspecified, first trimester (principal); R10.9 Unspecified abdominal pain; Z3A.01 Less than 8 weeks gestation of pregnancy
CPT/HCPCS: 36415; 76817; 81001; 84702; 99284

== ENCOUNTER 2018-04-20 15:42 | Emergency (ER) | payer MEDICAID ==
[2018-04-20] MEDS ORDERED: IBUPROFEN 600 MG TABLET PO ONE (16:51)
[2018-04-20] MEDS ORDERED: DEXAMETHASONE SOD PHOS INJ 10 MG/1 ML VIAL IM ONE (17:22)
[2018-04-20] MEDS ORDERED: KETOROLAC TROMETHAMINE 60 MG/2 ML SDV IM ONE (17:22)
[2018-04-20 17:27] LABS: A TYPE INFLUENZA AG NEGATIVE (NEGATIVE); B INFLUENZA AG NEGATIVE (NEGATIVE)
--- NOTE | 2018-04-20 18:04 | RADIOLOGY REPORT (SQ) ---
EXAM DESCRIPTION: CT SOFT TISSUE NECK WITHOUT COMPLETED DATE/TIME: 04/20/2018 5:48 pm REASON FOR STUDY: eval for abscess COMPARISON: None. TECHNIQUE: Noncontrast scanning from skull base through lung apices with review of bone, soft tissue and lung windows. Reconstructed coronal and sagittal MPR images reviewed. All images stored on PAC S. All CT scanners at this facility use dose modulation, iterative reconstruction, and/or weight based d osing when appropriate to reduce radiation dose to as low as reasonably achievable (ALARA). [facility]: Dose Right [facility]: CareDose [facility]: Dose Right [facility]: Teradose 4D [facility]: Smart ActiveGift RADIATION DOSE: CT Rad equipment meets quality standard of care and radiation dose reduction techniq ues were employed. CTDIvol: 19.2 mGy. DLP: 634 mGy-cm. mGy. LIMITATIONS: None. FINDINGS: SKULL BASE: Intact. MAJOR SALIVARY GLANDS: No solid or cystic masses. No inflammatory changes. LYMPHADENOPATHY: There is extensive bilateral anterior cervical lymphadenopathy. MUCOSAL MASSES OR ASYMMETRY: There is retropharyngeal soft tissue thickening with a slightly right ec centric, ill-defined, oval low-attenuation area measuring approximately 5.2 x 2.6 x 1.1 cm (series 2, image 46, series 300, image 36). LARYNX/CORDS: No abnormal findings. LUNG APICES: Clear. BONES: Intact. THYROID: Normal size. No masses. PARANASAL SINUSES: Clear. OTHER: No other significant finding. IMPRESSION: There is retropharyngeal soft tissue thickening with a slightly right eccentric, ill-def ined, oval low-attenuation area measuring approximately 5.2 x 2.6 x 1.1 cm and highly suspicious for retropharyngeal abscess or phlegmon. Evaluation of the retropharyngeal space is very limited on nonc ontrast CT. Follow-up contrast-enhanced CT or MRI would be helpful to more clearly define the presen ce of abscess. TECHNICAL DOCUMENTATION: JOB ID: [id number] Quality ID # [id number]: Final reports with documentation of one or more dose reduction techniques (e.g., Au tomated exposure control, adjustment of the mA and/or kV according to patient size, use of iterative reconstruction technique) 2010 [employer]- All Rights Reserved Reading location - IP/workstation name: [email or web address]
[2018-04-20] MEDS ORDERED: AMPICILLIN SOD/SULBACTAM 3 GM VIAL IV ONE (18:21)
--- NOTE | 2018-04-20 18:26 | ER Document Report ---
ED Medical Screen (RME) - General Chief Complaint: Flu Symptoms Stated Complaint: FLU LIKE SYMPTOMS Time Seen by Provider: 04/20/18 16:47 Primary Care Provider: PANCHITO HARRIS DO [Primary Care Provider] - Follow up as needed Notes: Patient is an otherwise healthy 32-year-old female who presents to the emergency department with difficulty swallowing, back pain, nasal congestion, neck pain with any movement and pain with breathing. Patient reports all of her symptoms started Thursday night. She states her tonsils are surgically absent. She reports fevers at home up to 103. She was initially placed as an JENNY for and seen in [facility]. Patient was initially given 10 mg of IM Decadron as well as 60 mg of IM Toradol. Patient was sent for CT soft tissue without contrast as this patient reports that she is allergic to IV contrast. Patient reports anaphylaxis in the past, we discussed pre-medicating the patient, patient adamantly states that they told her if she ever had IV contrast again she would . Patient upgraded to an JENNY 2 and moved to the main side after CT scan results for probable retropharyngeal abscess measuring 5.2 x 2.6 x 1.1 cm. This may also be a phlegmon. I discussed this with my attending physician, Dr. Mckeon who recommends placing additional orders. I have greeted and performed a rapid initial assessment of this patient. A comprehensive ED assessment and evaluation of the patient, analysis of test results and completion of the medical decision making process will be conducted by additional ED providers. Dictation of this chart was performed using voice recognition software; therefore, there may be some unintended grammatical errors. TRAVEL OUTSIDE OF THE [place] IN LAST 30 DAYS: No - Related Data Allergies/Adverse Reactions: Influenza Virus Vaccines [Influenza Virus Vaccine] Allergy (Verified 03/18/18 17:03) nonallergic ivp dye Allergy (Uncoded 03/18/18 17:03) Past Medical History Pulmonary Medical History: Denies: Hx Asthma Endocrine Medical History: Denies: Hx Diabetes Mellitus Type 1, Hx Diabetes Mellitus Type 2 Renal/ Medical History: Denies: Hx Peritoneal Dialysis GI Medical History: Reports: Hx Crohn's Disease Psychiatric Medical History: Reports: Hx Depression Past Surgical History: Reports: Hx Section - x3, Hx Oral Surgery - wisdom teeth extraction 2005, Hx Tonsillectomy - 2006 - Immunizations Immunizations up to date: Yes Hx Diphtheria, Pertussis, Tetanus Vaccination: Yes Physical Exam - Vital signs Vitals: Temp Pulse Resp BP Pulse Ox 100.9 F H 118 H 18 116/58 L 95 04/20/18 15:54 04/20/18 15:54 04/20/18 15:54 04/20/18 15:54 04/20/18 15:54 Course - Vital Signs Vital signs: Temp Pulse Resp BP Pulse Ox 100.9 F H 118 H 18 116/58 L 95 04/20/18 15:54 04/20/18 15:54 04/20/18 15:54 04/20/18 15:54 04/20/18 15:54 Doctor's Discharge - Discharge Referrals: PANCHITO HARRIS DO [Primary Care Provider] - Follow up as needed
--- NOTE | 2018-04-20 18:59 | ER Document Report ---
ED General - General Chief Complaint: Flu Symptoms Stated Complaint: FLU LIKE SYMPTOMS Time Seen by Provider: 04/20/18 18:59 Primary Care Provider: PANCHITO HARRIS DO [Primary Care Provider] - Follow up as needed Mode of Arrival: Ambulatory Information source: Patient Notes: HISTORY OF PRESENT ILLNESS: Patient is a 32-year-old female with a past medical history of Crohn's disease who presents with fever and sore throat for the past 2 days. Location: Posterior throat Onset: Gradual Provocation: Swallowing Quality: "Aching, soreness" Radiation: None Severity: "Really bad" Timing: Constant Known sick contacts: Unknown Associated symptoms: Intermittent fevers, decreased oral intake secondary to pain, aching back pain with decreased urination, no nausea or vomiting, no chest pain or shortness of breath Home treatment: Motrin/Tylenol REVIEW OF SYSTEMS: CONSTITUTIONAL : Positive fevers but denies chills or sweats. EENT: Positive for sore throat but negative for drainage from the eyes or ear pain. CARDIOVASCULAR: Denies chest pain. RESPIRATORY: Denies cough, cold, or chest congestion. Denies shortness of breath, difficulty breathing, or wheezing. GASTROINTESTINAL: Denies abdominal pain. Denies nausea, vomiting, or diarrhea. Denies constipation. GENITOURINARY: Denies difficulty urinating, painful urination, burning, frequency, or blood in urine. FEMALE GENITOURINARY: Denies vaginal bleeding, abnormal or irregular periods. MUSCULOSKELETAL: Denies body aches. Denies neck or back pain or joint pain or swelling. SKIN: Denies rash or skin lesions. HEMATOLOGIC : Denies easy bruising or bleeding. LYMPHATIC: Denies swollen, enlarged glands. NEUROLOGICAL: Denies altered mental status or loss of consciousness. Denies headache. Denies weakness or paralysis or loss of use of either side. Denies problems with gait or speech. Denies sensory or motor loss. PSYCHIATRIC: Denies anxiety or stress or depression. All other systems reviewed and negative. PHYSICAL EXAMINATION: GENERAL: Tired-appearing, well-nourished and in no acute distress. HEAD: Atraumatic, normocephalic. No scalp deformity, depression, or crepitance. EYES: Pupils are 3 mm and equal/round/reactive to light, extraocular movements intact, sclera anicteric, conjunctiva are normal. ENT: Nares patent bilaterally, oropharynx with mild erythema but no exudates or petechiae. Moist mucous membranes. No tonsil hypertrophy. NECK: Normal range of motion, supple without lymphadenopathy. LUNGS: Breath sounds present, equal, and clear to auscultation bilaterally. No wheezes, rales, or rhonchi. HEART: Regular rate and rhythm without murmurs, rubs, or gallops. 2+ peripheral pulses. Normal capillary refill. ABDOMEN: Soft, nontender, nondistended. Normoactive bowel sounds. No guarding, no rebound. No masses appreciated. BACK: Normal contour, no midline tenderness. Rectal exam deferred. PELVC: Deferred. EXTREMITIES: Normal range of motion, no pitting or edema. No cyanosis. NEUROLOGICAL: No focal neurological deficits. Moves all extremities spontaneously and on command. PSYCH: Normal mood, normal affect. No suicidal thoughts/ideations. No homocidal thoughts/ideations. No hallucinations. SKIN: Warm, dry, normal turgor, no rashes or lesions noted. ASSESSMENT AND PLAN: This patient is a 32-year-old female who presents with fever and sore throat but no coughing. Most likely viral syndrome but could represent pharyngitis versus much less likely influenza given lack of coughing. 1. Will obtain labs, influenza screen, and CT scan of the neck. 2. Will give IV fluids with Toradol and reassess. TRAVEL OUTSIDE OF THE [place] IN LAST 30 DAYS: No - Related Data Allergies/Adverse Reactions: Influenza Virus Vaccines [Influenza Virus Vaccine] Allergy (Verified 03/18/18 17:03) nonallergic ivp dye Allergy (Uncoded 03/18/18 17:03) Past Medical History - General Information source: Patient - Social History Smoking Status: Unknown if Ever Smoked Chew tobacco use (# tins/day): No Frequency of alcohol use: None Drug Abuse: None Lives with: Family Family History: CAD, DM, Hypertension, Malignancy, Other - pcos Patient has suicidal ideation: No Patient has homicidal ideation: No - Medical History Medical History: Negative - Past Medical History Cardiac Medical History: Reports: None Pulmonary Medical History: Reports: None Denies: Hx Asthma EENT Medical History: Reports: None Neurological Medical History: Reports: None Endocrine Medical History: Reports: None. Denies: Hx Diabetes Mellitus Type 1, Hx Diabetes Mellitus Type 2 Renal/ Medical History: Reports: None. Denies: Hx Peritoneal Dialysis Malignancy Medical History: Reports: None GI Medical History: Reports: Hx Crohn's Disease Musculoskeletal Medical History: Reports None Skin Medical History: Reports None Psychiatric Medical History: Reports: Hx Depression Traumatic Medical History: Reports: None Infectious Medical History: Reports: None Past Surgical History: Reports: Hx Section - x3, Hx Oral Surgery - wisdom teeth extraction 2006, Hx Tonsillectomy - 2006 - Immunizations Immunizations up to date: Yes Hx Diphtheria, Pertussis, Tetanus Vaccination: Yes Physical Exam - Vital signs Vitals: Temp Pulse Resp BP Pulse Ox 100.9 F H 118 H 18 116/58 L 95 04/20/18 15:54 04/20/18 15:54 04/20/18 15:54 04/20/18 15:54 04/20/18 15:54 Course - Re-evaluation Re-evalutation: 04/20/18 23:44 CT scan shows possible retropharyngeal abscess versus phlegmon, did not show a definite fluid collection however. Patient was given IV Unasyn as well as Decadron, currently feels much better. She will be discharged home with return precautions and follow-up with the ENT in the next 1-2 days. Patient voices b oth understanding and agreeing with the plan. - Vital Signs Vital signs: Temp Pulse Resp BP Pulse Ox 100.9 F H 118 H 22 H 104/51 L 94 04/20/18 15:54 04/20/18 15:54 04/20/18 23:01 04/20/18 23:00 04/20/18 23:01 - Laboratory Result Diagrams: 04/20/18 19:13 04/20/18 19:13 Laboratory results interpreted by me: 04/20/18 19:13 WBC 19.4 H Hgb 10.1 L Hct 31.5 L MCV 71 L MCH 22.7 L RDW 17.1 H Plt Count 480 H Seg Neutrophils % 89.0 H Lymphocytes % 7.3 L Monocytes % 2.5 L Absolute Neutrophils 17.3 H - Diagnostic Test Radiology reviewed: Image reviewed, Reports reviewed Discharge - Discharge Clinical Impression: Sore throat, Retropharyngeal abscess Condition: Good Disposition: HOME, SELF-CARE Instructions: Abscess ([facility]) Additional Instructions: You have been evaluated in the Emergency Department for fever and sore throat. A CT scan was obtained which showed concern for a fluid collection or a developing one in your neck, also known as a retropharyngeal abscess. You were given IV antibiotics as well as steroids to help with the swelling and pain medication. Please follow-up with an ENT physician as instructed in 24-48 hours to be rechecked. Take your prescribed medications as instructed. Return to the Emergency Department if you experience uncontrollable fevers, increased pain/swelling of the throat, difficulty breathing, or any other concerning symptoms. Prescriptions: Amox Tr/Potassium Clavulanate [Augmentin 400-57 mg/5 mL Suspension] 10 ml PO TID #210 ml Hydrocodone/Acetaminophen [Lortab 7.5-325 mg/15 ml Oral Soln] 10 ml PO Q6H PRN #200 ml PRN Reason: For Pain Referrals: PANCHITO HARRIS DO [Primary Care Provider] - Follow up as needed Print Language: Kittitian
--- NOTE | 2018-04-20 19:22 | RADIOLOGY REPORT (SQ) ---
EXAM DESCRIPTION: CHEST 2 VIEWS COMPLETED DATE/TIME: 04/20/2018 6:45 pm REASON FOR STUDY: concern for RPA, fever, tachcardia COMPARISON: 12/23/2016 EXAM PARAMETERS: NUMBER OF VIEWS: two views TECHNIQUE: Digital Frontal and Lateral radiographic views of the chest acquired. RADIATION DOSE: NA LIMITATIONS: none FINDINGS: LUNGS AND PLEURA: No opacities, masses or pneumothorax. No pleural effusion. MEDIASTINUM AND HILAR STRUCTURES: No masses or contour abnormalities. HEART AND VASCULAR STRUCTURES: Heart normal size. No evidence for failure. BONES: No acute findings. HARDWARE: None in the chest. OTHER: No other significant finding. IMPRESSION: NO ACUTE RADIOGRAPHIC FINDING IN THE CHEST. TECHNICAL DOCUMENTATION: JOB ID: [id number] [employer]- All Rights Reserved Reading location - IP/workstation name: [email or web address]
[2018-04-20 19:27] LABS: ABSOLUTE BASOPHILS # (AUTO) 0.1 10^3/uL (0.0-0.2); ABSOLUTE EOSINOPHILS # (AUTO) 0.1 10^3/uL (0.0-0.6); ABSOLUTE LYMPHOCYTES (AUTO) 1.4 10^3/uL (0.5-4.7); ABSOLUTE MONOCYTES (AUTO) 0.5 10^3/uL (0.1-1.4); ABSOLUTE NEUT (AUTO) 17.3 10^3/uL (1.7-8.2); BASOPHILS % (AUTO) 0.7 % (0-2); EOSINOPHILS % (AUTO) 0.5 % (0-6); HEMATOCRIT 31.5 % (36.0-47.0); HEMOGLOBIN 10.1 g/dL (12.0-15.5); LYMPHOCYTES % (AUTO) 7.3 % (13-45); MEAN CORPUSCULAR HEMOGLOBIN 22.7 pg (27.0-33.4); MEAN CORPUSCULAR VOLUME 71 fl (80-97); MONOCYTES % (AUTO) 2.5 % (3-13); PLATELET COUNT 480 10^3/uL (150-450); RED BLOOD COUNT 4.43 10^6/uL (3.72-5.28); RED CELL DISTRIBUTION WIDTH 17.1 % (11.5-14.0); TOTAL CELLS COUNTED % (AUTO) 100 %; WHITE BLOOD COUNT 19.4 10^3/uL (4.0-10.5)
[2018-04-20 19:48] LABS: ALANINE AMINOTRANSFERASE 16 U/L (9-52); ALKALINE PHOSPHATASE 99 U/L (38-126); ANION GAP 10 (5-19); ASPARTATE AMINO TRANSFERASE 26 U/L (14-36); BILIRUBIN,DIRECT 0.3 mg/dL (0.0-0.4); BILIRUBIN,TOTAL 0.4 mg/dL (0.2-1.3); BLOOD UREA NITROGEN 8 mg/dL (7-20); CALCIUM 8.8 mg/dL (8.4-10.2); CARBON DIOXIDE 26 mmol/L (22-30); CHLORIDE 103 mmol/L (98-107); GLUCOSE 105 mg/dL (75-110); POTASSIUM 3.7 mmol/L (3.6-5.0); SODIUM 139.2 mmol/L (137-145); TOTAL PROTEIN 7.3 g/dL (6.3-8.2)
[2018-04-20] MEDS ORDERED: NORMAL SALINE 1000 ML 1,000 ML IV ONE (21:16)
[2018-04-20] MEDS ORDERED: MORPHINE SULFATE 10 MG/ML INJ IV ONE (21:16)
[2018-04-21 00:08] VITALS: BP 110/54
== END 2018-04-21 00:10 | disposition home or self-care (01) ==
LOC: ER 15:42
DX: J39.0 Retropharyngeal and parapharyngeal abscess (principal); R50.9 Fever, unspecified; Z88.7 Allergy status to serum and vaccine; Z91.041 Radiographic dye allergy status
CPT/HCPCS: 99283; 96365; 36415; 87040; 85025; 80053; 87804; 71046; 70490; J1885; J0295; J2270; J7030; J1100

== ENCOUNTER → 2019-08-24 | Outpatient (CLI) | payer OTHER, MEDICAID ==
--- NOTE | 2019-08-24 15:09 | RADIOLOGY REPORT (SQ) ---
EXAM DESCRIPTION: WRIST RIGHT 3 VIEWS IMAGES COMPLETED DATE/TIME: 08/24/2019 2:51 pm REASON FOR STUDY: INJURY OF RT WRIST S69.91XA UNSP INJURY OF RIGHT WRIST, HAND AND FINGER(S), INI COMPARISON: None. NUMBER OF VIEWS: Four views. TECHNIQUE: AP, lateral, and oblique radiographic images acquired of the right wrist. Additional scaphoid view right wrist LIMITATIONS: None. FINDINGS: MINERALIZATION: Normal. BONES: No acute fracture or dislocation. No worrisome bone lesions. Normal alignment. SOFT TISSUES: No soft tissue swelling. No foreign body. OTHER: No other significant finding. IMPRESSION: No acute fracture or malalignment TECHNICAL DOCUMENTATION: JOB ID: [id number] 2010 [email or web address]- All Rights Reserved Reading location - IP/workstation name: [email or web address]
== END ==
LOC: OD 14:31
PROVIDERS: ATTEND Nurse Practitioner Family
DX: S69.91XA Unspecified injury of right wrist, hand and finger(s), initial encounter (principal); X58.XXXA Exposure to other specified factors, initial encounter

== ENCOUNTER 2019-12-07 08:56 | Day surgery (SDC) | payer MEDICAID, OTHER ==
[~2019-12-07 08:56] MED LIST: ACETAMINOPHEN 1,000 MG/100 ML RTUPB IV ONE; DEXAMETHASONE SOD PHOS INJ 10 MG/1 ML VIAL ONE; FENTANYL CITRATE INJ/PF 100 MCG/2 ML AMPUL ONE; HYDROMORPHONE HCL INJ/PF 2 MG/ML AMPULE ONE; ONDANSETRON HCL INJ/PF 4 MG/2 ML SDV ONE; PROPOFOL INJ 200 MG/20 ML VIAL IV ONE; SUCCINYLCHOLINE CHLORIDE INJ 200 MG/10 ML VIAL ONE
[2019-12-07] MEDS ORDERED: OXYMETAZOLINE HCL 0.05% NASAL SPRAY 15 ML BOTTLE ONE (09:56)
[2019-12-07] MEDS ORDERED: COCAINE HCL 4% TOPICAL SOLN 4 ML ONE (09:56)
[2019-12-07] MEDS ORDERED: LIDOCAINE 2%/EPINEPHRINE INJ 1.7 ML CARTRIDGE ONE (09:56)
[2019-12-07] MEDS ORDERED: MIDAZOLAM 2 MG/2 ML INJ ONE (09:58)
[2019-12-07] MEDS ORDERED: ROCURONIUM BROMIDE INJ 50 MG/5 ML VIAL IV ONE (11:07)
[2019-12-07] MEDS ORDERED: NEOSTIGMINE METHYLSULFATE 10 MG/10 ML VIAL ONE (11:07)
[2019-12-07] MEDS ORDERED: GLYCOPYRROLATE INJ 0.4 MG/2 ML VIAL ONE (11:07)
--- NOTE | 2019-12-07 11:36 | Operative Report ---
Operative Report-[facility] Operative Report: Date: 07 December 2019 History: 34-year-old female with a history of eustachian tube dysfunction, bilaterally and adenoid hypertrophy. Presents today for a BMT T, adenoidectomy and balloon dilation both eustachian tubes. Informed consent was obtained from the patient Preoperative Diagnosis: 1. Eustachian tube dysfunction, bilateral 2. Adenoid hypertrophy Postoperative diagnosis: Same as above Procedure: 1. Eustachian tube balloon dilation/reconstruction nasopharynx [CPT = 79005], right 2. Eustachian tube balloon dilation/reconstruction nasopharynx [CPT = 42113], left 3. Myringotomy with insertion tympanostomy tube, bilateral 4. Rigid nasal endoscopy, bilateral 5. Inferior turbinate reduction, right Surgeon: Jarred Melvin MD, FACS, [facility] Anesthesia: GETA Description of procedure: After receiving informed consent from the patient, the patient was transported to the operating room and placed supine on the operating room table. After successful induction and intubation by anesthesia cottonoids saturated with 4% cocaine were placed into both nasal cavities for approximately 5 minutes. They were then removed. Nasal septum and inferior turbinate were injected with 2% Xylocaine with 100,000 epinephrine. The cottonoids were placed back into the nasal cavity. The operating microscope was brought into the field and under binocular microscopy a properly sized ear speculum was placed into the right ear. The tympanic membrane was visualized and a radial incision was made in the anterior inferior quadrant. Middle ear space was dry. A Cheo PE tube was then placed into this incision and otic drops placed into the external auditory canal. A similar procedure was performed on the left side. Attention was then directed to the eustachian tube balloon dilation portion of the procedure. The cottonoids were removed from the nasal cavity. A rigid 30 degree nasal endoscope along with the AREA eustachian tube balloon dilation system was inserted in the left nasal cavity. The torus tubarius was visualized. Under endoscopic guidance the balloon was inserted into the left eustachian tube lumen. The balloon was then insufflated to 12 atmospheric pressure for 2 minutes. The balloon was then let down and removed from the eustachian tube lumen. The endoscope and balloon system was then removed from the nasal cavity. A similar procedure was performed on the right side, however prior to starting the balloon dilation on the right inferior turbinate was med ialized and then lateralized using a Sayer elevator. Attention was then directed towards the adenoidectomy portion of the procedure. Shoulder roll was placed along with a head drape and the bed was then turned 90 degrees and placed in slight Trendelenburg. The McIvor mouthgag was placed atraumatically in the oral cavity. This was then opened up. The soft palate was palpated and found to be normal. Red catheters were inserted down each nasal cavity and brought out to elevate the soft palate. Mirror was used to view the nasopharynx and the adenoid pad was found to be 2-3+ in size. Next, using the PEAK system an adenoidectomy was performed. Hemostasis was obtained using the same system. The nasopharynx was viewed and found to be dry. The nasopharynx along with the oral cavity and oropharynx was irrigated with copious amounts of normal saline. No bleeding was noted. An orogastric tube was inserted into the stomach and gastric contents was aspirated. The McIvor mouthgag was then let down and reopened, no bleeding was noted. The McIvor mouthgag along with the red catheters was removed from the patient. The patient tolerated the procedure well without any complica tion. Patient was then given back to anesthesia who successfully extubated the patient without any complications. Estimated blood loss: 5 mL Fluids: 800 mL The patient was transferred to the postanesthesia care unit in stable condition with spontaneous respirations.
[2019-12-07] MEDS ORDERED: HYDROCODONE/ACETAMINOPHEN 5-325 MG TABLET ONE (11:53)
[2019-12-07] MEDS ORDERED: ONDANSETRON HCL INJ/PF 4 MG/2 ML SDV ONE (12:17)
== END 2019-12-07 12:43 | disposition home or self-care (01) ==
LOC: SC 08:56
PROVIDERS: ATTEND Otolaryngology
DX: H65.22 Chronic serous otitis media, left ear (principal); H69.83 Other specified disorders of Eustachian tube, bilateral; J35.2 Hypertrophy of adenoids; H90.0 Conductive hearing loss, bilateral; Z87.891 Personal history of nicotine dependence; Z03.818 Encounter for observation for suspected exposure to other biological agents ruled out; R51 Headache; E66.9 Obesity, unspecified; D64.9 Anemia, unspecified
CPT/HCPCS: 42950; 69436; 42831; 31231; 30140; 87635; 00170; J2250; J3490 ×4; C9046; J2710; J1170; J0330; J2405; J2704; J1100; J0131; C9803; 170; J3010